=== PATIENT | female | born 1990 | race Caucasian/White ===

== ENCOUNTER 2016-09-07 09:46 | Emergency (ER) | payer OTHER ==
[~2016-09-07] VITALS: Wt 45.4 kg
[2016-09-07] MEDS ORDERED: ALBU8.5H3 INH (10:28)
[2016-09-07] MEDS ORDERED: AMOX1TAB10 PO (10:28)
[2016-09-07] MEDS ORDERED: [UNRECOGNIZED DRUG - CODE] PO (10:29)
--- NOTE | 2016-09-07 10:36 | ERD ---
ER Documentation Chief Complaint Date/Time DATE: 09/07/16 TIME: 10:15 Chief Complaint cough and congestion and fevers for the past few days. generalized bodyache HPI 26 y/o female presents to ED for cough and congestion for less than a week. States that she felt like she has a fever at home the other day but she never took her temperature. Also complains of frontal and maxillary sinus pain. Denies headache, loss of consciousness, dizziness, blurry vision, changes in vision, photophobia, ear pain, throat pain, difficulty swallowing, neck pain, shoulder pain, chest pain, hemoptysis, abdominal pain, back pain, loss of appetite, nausea, vomiting, hematochezia, diarrhea, constipation, urinary symptoms, , the possibility of being , bladder and bowel incontinences, extremity weakness, extremity tenderness, numbness or tingling sensation, difficulty walking, recent travel, recent exposure to illness, recent antibiotic use in the last 3 months, chills. Allergy: NKA PMH: Denies Family medical history: Denies A1 LMP:" 3 weeks ago." Medications: Ortho Tri-Cyclen Surgery: Denies Primary Social History: Interior design Denies smoking, use of alcohol, use of illegal drugs. ROS All systems reviewed and are negative except as per history of present illness. Medications Home Meds Active Scripts Dextromethorphan Hb/Doxylamine (Robitussin Nighttime Cough Dm) 118 Ml Liquid, 118 ML PO every 4 hours Y for COUGH for 7 Days Prov:WARREN HEBERT 09/07/16 Albuterol Sulfate* (Proair HFA*) 8.5 Gm Hfa.aer.ad, 2 PUFF INH Q4, #1 INHALER Prov:WARREN HEBERT 09/07/16 Amoxicillin/Potassium Clav (Amox-Clav 875-125 mg Tablet) 875-125 mg Tab, 1 TAB PO BID for 7 Days, #14 TAB Prov:WARREN HEBERT 09/07/16 PMhx/Soc Medical and Surgical Hx: pt denies Medical Hx, pt denies Surgical Hx Hx Alcohol Use: No Hx Substance Use: No Hx Tobacco Use: No Smoking Status: Never smoker Physical Exam Vitals Vital Signs Date Time Temp Pulse Resp B/P Pulse Ox O2 Delivery O2 Flow Rate FiO2 09/07/16 09:50 97.9 83 21 130/72 99 Physical Exam CONSTITUTIONAL: Well-appearing; well-nourished; in no apparent distress. HEAD: Normocephalic; atraumatic. EYES: Conjunctiva clear, sclera non-icteric, EOM intact. PERRL Ears: Hearing intact. EACs clear, TMs non-bulging, non-inflamed, translucent & mobile, ossicles normal appearance, No obstructions, no erythema, no discharges Nose: Congestion no obstructions. No polyps. No external lesions. No external lesions, septum and turbinates normal. No rhinorrhea. No discharges. Frontal sinus is tender to palpation. Maxillary sinus is tender to palpation. MOUTH: Moist mucous membranes, no lesion, no obstructions, no vesicles, no thrush, patent airway Throat: Uvula in midline. Right tonsil is +1 with no erythema, no exudate. Left tonsil is +1 with no erythema, no exudate. Tolerating secretions well. Good gag reflex. Patent airway. Neck: Supple, without lesions, bruits, or adenopathy. No mass. Thyroid non- enlarged and non-tender to palpation. CHEST: Symmetrical chest. Respirations even and not labored. No retractions noted. CARDIOVASCULAR: Normal S1, S2. RRR. No murmurs, gallops. RESPIRATORY: Normal chest excursion with respiration; breath sounds clear and equal bilaterally; no wheezes, rhonchi, or rales. Breathing even and unlabored. Speaking in clear, full, and complete sentences w/ ease. ABDOMEN: Normal bowel sounds normal. Soft, round, non-distended, non-guarding, no tenderness, no rebound, no organomegaly, no masses, no pulsating abdominal mass. No hernia. No peritoneal signs. : No CVA tenderness. BACK: Symmetrical shoulder. Spine is midline without deformity, tenderness. No evidence of trauma or deformity. PELVIS: Stable pelvis. No evidence of trauma or deformity. MUSCULOSKELETAL: Normal gait and station. No misalignment, asymmetry, crepitation, defects, tenderness, masses, effusions, decreased range of motion, instability, atrophy or abnormal strength or tone in the head, neck, spine, ribs , pelvis or extremities. No calf tenderness. NEUROVASCULAR: Distal pulses are present. Pedal pulse are present, equal, and normal. Capillary refills are < 2 seconds. NEUROLOGIC: Alert and oriented x4. Speaks full and clear sentences. Cranial Nerves II-XII normal. Sensation to pain, touch, and proprioception normal. Grossly unremarkable. No neurologic deficits. Romberg test is negative. PSYCHOLOGICAL: The patients mood and manner are appropriate. No hallucinations , delusions. Not SI. Not HI. Has the capacity to decide for self SKIN: Normal for age and ethnicity; warm; dry; good turgor; no apparent lesions or exudates. No rashes, hives, discoloration. Intact. Procedures/MDM Examination: Unremarkable examination except mild congestion, frontal and maxillary sinus tenderness on palpation. Disease process, medical treatment was explained to the patient and family member. They verbalized understanding and agreed with the diagnostic tests, medical treatment, and follow-up care. Consultation: None Differential diagnosis: Pneumonia versus bronchitis versus otitis media versus otitis externa versus sinusitis versus strep throat pharyngitis. Medical decision makin26 y/o female presents to ED for cough and congestion for less than a week. States that she felt like she has a fever at home the other day but she never took her temperature. Also complains of frontal and maxillary sinus pain. Patient's complaint, patient's presentation, my physical findings are consistent with my final diagnosis of acute clinical sinusitis. Medications prescribed are the following: Augmentin, pro-air, Robitussin DM. Patient and family member are made aware of the side effects and adverse reactions of the medications prescribed. Instructed on when to seek emergent and medical attention in case allergic/anaphylactic reactions or severe side effects and or adverse reactions to medications. Patient and family member verbalized understanding. Patient instructed Instructed to follow-up with his PCP in 24-48 hours. Instructed to Call 911 for chest pain, shortness of breath. Advised to come back here in ED as soon as possible for severity of symptoms which includes but not limited to: any new symptoms; shortness of breath/difficulty of breathing; cardiovascular changes; severe gastrointestinal symptoms; signs and symptoms of bleeding and or infection; signs of compartment syndrome/neurovascular changes; neurological changes/deficits. Patient and family member verbalized understanding. Upon discharge, patient is alert and oriented x 4, speaks full and clear sentences, denies pain, has no neurological deficits, has no neurovascular deficits, difficulty of breathing. Breathing even and unlabored. Lung sounds are clear to auscultation. Not in distress. Appears comfortable. Ambulatory with steady gait. Appears satisfied with care provided here in ED. Departure Diagnosis: Primary Impression: Sinusitis Sinusitis location: maxillary Chronicity: unspecified Qualified Code: J32.0 - Maxillary sinusitis, unspecified chronicity Condition: Good Referrals: [facility] YOU HAVE RECEIVED A MEDICAL SCREENING EXAM AND THE RESULTS INDICATE THAT YOU DO NOT HAVE A CONDITION THAT REQUIRES URGENT TREATMENT IN THE EMERGENCY DEPARTMENT. FURTHER EVALUATION AND TREATMENT OF YOUR CONDITION CAN WAIT UNTIL YOU ARE SEEN IN YOUR DOCTORS OFFICE WITHIN THE NEXT 1-2 DAYS. IT IS YOUR RESPONSIBILITY TO MAKE AN APPOINTMENT FOR FOLOW-UP CARE. IF YOU HAVE A PRIMARY DOCTOR --you should call your primary doctor and schedule an appointment IF YOU DO NOT HAVE A PRIMARY DOCTOR YOU CAN CALL OUR PHYSICIAN REFERRAL HOTLINE AT IF YOU CAN NOT AFFORD TO SEE A PHYSICIAN YOU CAN CHOSE FROM THE FOLLOWING [facility] CLINICS [facility] [address] [facility] [address] [facility] [address] [facility] [address] [facility] [facility] [address] [facility] [facility] [address] [facility] () Usted se mahajan hecho un examen mdico de control que le indica que no est en genet condicin que requiera tratamiento urgente en el Departamento de Emergencia. Un estudio ms profundo y el tratamiento de nunn condicin pueden esperar sin ningn riesgo hasta que usted sea atendida/o en el consultorio de nunn mdico o genet cl nyla. Es responsabilidad suya arreglar genet kallie para el seguimiento del daniel. MANEJO DE CONDICIONES NO URGENTES EN EL FUTURO 1) Si usted tiene un mdico de atencin primaria: Usted debera llamar a nunn mdico de atencin primaria antes de venir al departamento de emergencia. Despus de las horas de consultorio, nunn doctor o nunn asociado/a est disponible por telfono. El mdico o enfermero de aleksandr en el servicio telefnico puede asesorarle por marcela medio para atender el problema, o daniel contrario se puede programar genet kallie. 2) Si usted no tiene un mdico de atencin primaria: Llame al mdico o clnica de referencia que aparece abajo kayleen las horas de consultorio para hacer genet kallie para que le vean. CLINICAS: [place] [address] [phone] [facility] [phone] [address] [facility] [phone] [address] [facility] [facility]. [place] [id number] [phone] [place] [id number] [phone] [facility]. [phone] [address] Additional Instructions: Follow-up with PCP in 24-48 hours. WARREN HEBERT Sep 07, 2016 10:36
== END 2016-09-07 10:40 | disposition home or self-care (01) ==
LOC: FTE 09:46
DX: J32.0 Chronic maxillary sinusitis (principal)
CPT/HCPCS: 99284